=== PATIENT | male | born 1945 | race Hispanic/Latino ===

== ENCOUNTER 2023-04-16 08:29 | Outpatient (CLI) | payer OTHER, SELFPAY ==
--- NOTE | ~2023-04-16 | MR_ITS ---
EXAMINATION: MR pelvis wo/w con DATE: 04/16/2023 09:37 INDICATION: Prostate cancer TECHNIQUE: Magnetic resonance imaging (MRI) of the pelvis was performed without and with 20 mL Multih ance intravenous contrast. Fullfield sequences of the pelvis included axial and coronal T2-weighted S S FSE, axial, sagittal and coronal 2D FIESTA, axial 2D FIESTA FS, axial SSFSE-IR SUMAN, axial dual-echo T1-weighted FSPGR, axial and coronal T1 weighted LAVA, 3D axial T2 Cube, axial diffusion-weighted SE with apparent diffusion coefficient (ADC) maps. Postcontrast sequences included a time course axial T1-weighted LAVA and sagittal and coronal T1-weighted LAVA. COMPARISON: None. FINDINGS: Enlarged and heterogeneous prostate measuring 5.7 x 4.4 x 5.8 cm. There is a T2 hyperintense hydrogel spacer situated between the prostate and the anterior rectum and measuring 6.3 cm craniocaudally, 2. 3 cm medial collateral and 1.2 cm anteroposteriorly. Bladder is normal. No pathologically enlarged pe lvic or inguinal lymphadenopathy. Visualized portion of the bowels are unremarkable. Moderate-sized f at-containing left indirect inguinal hernia. Bone marrow signal is normal throughout. IMPRESSION: 1. Collection of hydrogel in expected position situated between the enlarged prostate in the anterior rectum. No evident metastatic disease. 2. Moderate-sized fat-containing left inguinal hernia. Reviewed, dictated and finalized at location A. IMPRESSION: 1. Collection of hydrogel in expected position situated between the enlarged pr ostate in the anterior rectum. No evident metastatic disease. 2. Moderate-sized fat-containing left inguinal hernia.
== END 2023-04-16 08:30 | disposition home or self-care (01) ==
PROVIDERS: PCP Internal Medicine Infectious Disease; Visit Provider Radiology Radiation Oncology
DX: C61 Malignant neoplasm of prostate (principal); K40.90 Unilateral inguinal hernia, without obstruction or gangrene, not specified as recurrent
CPT/HCPCS: 72197; A9577

== ENCOUNTER 2025-05-28 15:53 | Emergency (ER) | payer OTHER, SELFPAY ==
[2025-05-28 15:58] VITALS: BP 123/62; PULSE 77; RESP 18; TEMP 36.4; O2SAT 97
--- NOTE | 2025-05-28 16:55 | ED.GENADULT ---
HPI - General Adult General Chief complaint: Back Pain/Injury Stated complaint: upper back pain since yesterday Time Seen by Provider: 05/28/25 16:18 History of Present Illness HPI narrative: 80-year-old male presents to the emergency department for evaluation for upper trapezius burning and tenderness. Patient states symptoms have been ongoing for the last few days. Patient has attempted Tylenol for pain control. Patient denies any falls or injuries. Patient describes the pain as a burning in his upper back but does have pain and tenderness in bilateral tripped upper trapezius Related Data Allergies Allergy/AdvReac Type Severity Reaction Status Date / Time No Known Allergies Allergy Verified 05/28/25 16:08 Review of Systems Review of Systems: All systems reviewed & are unremarkable except as noted in HPI and below Exam Narrative: APPEARANCE: Well appearing, no pain, no distress, well-nourished. HEAD: normocephalic, atraumatic. EYES: PERRLA/EOMI, conjunctivae clear. NOSE: Normal no drainage EARS:TMS clear with good light reflex. THROAT: Pharynx clear, no exudate. NECK: Supple. No adenopathy, no masses. RESPIRATORY: Airway patent, respirations nonlabored. Clear to auscultation bilaterally, no rales, rhonchi, wheezing. CARDIOVASCULAR: Regular rate and rhythm without murmurs rubs or gallops. ABDOMINAL: Soft, nontender, nondistended, normal bowel sounds MUSCULOSKELETAL: Upper trapezius tenderness bilaterally, tenderness to upper paraspinal muscles bilaterally NEURO: Alert. Cranial nerves II through XII intact. Good gait. Good coordination SKIN: Warm, dry. Normal Color Course Vital Signs Vital signs: Vital Signs Temperature 97.6 F 05/28/25 15:58 Pulse Rate 77 05/28/25 15:58 Respiratory Rate 18 05/28/25 15:58 Blood Pressure 123/62 05/28/25 15:58 Pulse Oximetry 97 05/28/25 15:58 Oxygen Delivery Room Air 05/28/25 15:58 Temperature 98.1 F 05/28/25 17:05 Pulse Rate 72 05/28/25 17:05 Respiratory Rate 17 05/28/25 17:05 Blood Pressure 120/65 05/28/25 17:05 Pulse Oximetry 99 05/28/25 17:05 Oxygen Delivery Room Air 05/28/25 15:58 Medical Decision Making [facility] Narrative Medical decision making narrative: 80-year-old male presented emergency department for evaluation for bilateral upper back muscular discomfort. Patient does have reproducible muscular tenderness to his trapezius muscles into the cervical aspect of the trapezius. Patient was provided medications for pain control and for muscle relaxation. Differential Diagnosis Differential Diagnosis: Shoulder strain, cervical strain, muscular strain Vital Signs Vital Signs: Vital Signs Temperature 97.6 F 05/28/25 15:58 Pulse Rate 77 05/28/25 15:58 Respiratory Rate 18 05/28/25 15:58 Blood Pressure 123/62 05/28/25 15:58 Pulse Oximetry 97 05/28/25 15:58 Oxygen Delivery Room Air 05/28/25 15:58 Temperature 98.1 F 05/28/25 17:05 Pulse Rate 72 05/28/25 17:05 Respiratory Rate 17 05/28/25 17:05 Blood Pressure 120/65 05/28/25 17:05 Pulse Oximetry 99 05/28/25 17:05 Oxygen Delivery Room Air 05/28/25 15:58 Discharge Plan Discharge Clinical Impression: Strain of cervical portion of both trapezius muscles, Cervical radiculopathy Patient Disposition: Home Condition: Stable Instructions: Antibiotic Form Additional Instructions: Medrol Dosepak as directed until completed. Flexeril for muscle spasm. Tylenol for additional pain control. Have close follow-up with your primary care physician. Patient Language: Maltese Prescriptions: New cyclobenzaprine 10 mg tablet 10 mg PO BID PRN (Reason: muscle spasm) Qty: 14 0RF methylprednisolone [Medrol (Madi)] 4 mg tablets,dose pack See Rx Instructions .ROUTE .COMPLEX Qty: 21 0RF Rx Instructions: for 6 days Follow-up/Referrals: Chata,Luis M Aragon [Primary Care Provider]
[2025-05-28 17:05] VITALS: BP 120/65; PULSE 72; RESP 17; TEMP 36.7; O2SAT 99
== END 2025-05-28 17:06 | disposition home or self-care (01) ==
PROVIDERS: Emergency Provider Emergency Medicine; PCP Internal Medicine Infectious Disease
DX: S16.1XXA Strain of muscle, fascia and tendon at neck level, initial encounter (principal); M54.12 Radiculopathy, cervical region; X58.XXXA Exposure to other specified factors, initial encounter
CPT/HCPCS: 99283